=== PATIENT | female | born 2000 | race Caucasian/White ===

== ENCOUNTER 2024-02-24 14:38 | Emergency (ER) | payer OTHER, SELFPAY ==
[2024-02-24 14:50] VITALS: BP 156/88; PULSE 87; RESP 18; TEMP 37.1; O2SAT 100
--- NOTE | 2024-02-24 15:09 | ED.EAR ---
HPI - Ear Problem General Chief complaint: Ear Stated complaint: Left Ear Problem/Sore Throat Source: patient Mode of arrival: ambulatory Limitations: no limitations History of Present Illness HPI Narrative: 23-year-old female presented for complaint of left ear pain and sore throat for 3 days. Pain is described as pressure and cloudy sensation. Pain was worse last night. Endorses throat feels dry with painful swallow. Denies cough, shortness of breath, wheezing, nausea vomiting, fevers or chills. MD Complaint: ear pain Related Data Home Medications Medication Instructions Recorded Confirmed levonorgestrel-ethinyl estradiol 1 tablet PO DAILY 02/24/24 02/24/24 0.1 mg-20 mcg tablet ([facility]) Allergies Allergy/AdvReac Type Severity Reaction Status Date / Time Sulfa (Sulfonamide Allergy Rash Verified 02/24/24 14:51 Antibiotics) Review of Systems Review of Systems: CONSTITUTIONAL: Denies malaise, chills, or fever. EYES: Denies visual changes, redness, or discharge. ENT: Denies rhinorrhea, congestion, sinus pain, Reports ear pain and sore throat. CARDIOVASCULAR: Denies chest pain, palpitations, or edema. RESPIRATORY: Denies cough or dyspnea. GASTROINTESTINAL: Denies abdominal pain, nausea, vomiting, diarrhea SKIN: Denies rash or itching. MUSCULOSKELETAL: Denies myalgia. NEUROLOGIC: Denies headache. All systems reviewed & are unremarkable except as noted in HPI and below [facility] Comments At time of signature, agree with nursing past medical, surgical, social and family history. There is no relevant family history pertinent to the presenting complaint Exam Narrative: GENERAL: Well-appearing, EYES: PERRLA, conjunctivae clear ENT: Nares clear. Mucous membranes moist. right TM pearly mcadams with dull light reflex; left TM erythematous, bulging and intact; canal not erythematous, no drainage no tragal tenderness. Oropharynx not erythematous without lesions. Tonsils not enlarged and without exudate, no drooling, no hoarseness, no trismus, uvula midline. NECK: Supple. No lymphadenopathy CHEST: Clear to auscultation, breath sounds equal. HEART: Regular rate and rhythm. No murmur heard. SKIN: Warm, dry, no rash. NEURO: Alert and oriented x3. PSYCH: Normal mood and affect Course Course Emergency Course: Patient is aware of diagnosis, understands and agrees to treatment plan. Anticipatory guidance given. Patient agrees to follow-up as directed and is aware of reasons to seek care at the emergency department. Portions of this record may have been created with voice recognition software Level of Care: Express Care Visit Vital Signs Vital signs: Vital Signs Temperature 98.7 F 02/24/24 14:50 Pulse Rate 87 02/24/24 14:50 Respiratory Rate 18 02/24/24 14:50 Blood Pressure 156/88 H 02/24/24 14:50 Pulse Oximetry 100 02/24/24 14:50 Oxygen Delivery Room Air 02/24/24 14:50 Temperature 98.7 F 02/24/24 14:50 Pulse Rate 87 02/24/24 14:50 Respiratory Rate 18 02/24/24 14:50 Blood Pressure 156/88 H 02/24/24 14:50 Pulse Oximetry 100 02/24/24 14:50 Oxygen Delivery Room Air 02/24/24 14:50 Reviewed Medical Decision Making MDM Narrative Medical decision making narrative: discussed physical exam findings consistent with left AOM Advised supportive measures and signs/symptoms to go to the ER. Patient is appropriate for outpatient treatment and follow-up. Differential Diagnosis Differential Diagnosis: Coronavirus, strep pharyngitis, allergic rhinitis, upper respiratory tract infection, sinusitis, rhinosinusitis, nasopharyngitis, viral pharyngitis, otitis media, otitis externa, eustachian tube dysfunction, foreign body, cerumen impaction. Vital Signs Vital Signs: Vital Signs Temperature 98.7 F 02/24/24 14:50 Pulse Rate 87 02/24/24 14:50 Respiratory Rate 18 02/24/24 14:50 Blood Pressure 156/88 H 02/24/24 14:50 Pulse Oximetry 100 02/24/24 14:50 Oxygen
== END 2024-02-24 15:20 | disposition home or self-care (01) ==
PROVIDERS: Emergency Provider Nurse Practitioner Family
DX: H66.92 Otitis media, unspecified, left ear (principal)
CPT/HCPCS: 99213; G0463

== ENCOUNTER 2024-05-19 08:46 | Emergency (ER) | payer OTHER, SELFPAY ==
[2024-05-19 08:52] VITALS: BP 155/99; PULSE 94; RESP 18; TEMP 36.7; O2SAT 100
--- NOTE | 2024-05-19 08:59 | ED.FEMALEGU ---
HPI - Female Genitourinary General Chief complaint: Urogenital-Female Stated complaint: Urinary Problem Source: patient and RN notes reviewed Mode of arrival: ambulatory Limitations: no limitations History of Present Illness HPI Narrative: 23 y/o female presents with complaints of urinary burning and frequency x1 day. She denies any concern for STD. She does not know when her LMP was,stating they are irregular but reports compliance with oral bcp. Denies hematuria, nausea, vomiting, abdominal pain, flank pain, constipation, diarrhea, fevers or chills. took azo yesterday afternoon. Related Data Home Medications Medication Instructions Recorded Confirmed levonorgestrel-ethinyl estradiol 1 tablet PO DAILY 02/24/24 02/24/24 0.1 mg-20 mcg tablet ([facility]) Allergies Allergy/AdvReac Type Severity Reaction Status Date / Time Sulfa (Sulfonamide Allergy Rash Verified 02/24/24 14:51 Antibiotics) Review of Systems Review of Systems: CONSTITUTIONAL: Denies body aches, fever, chills, or sweats. CARDIOVASCULAR: Denies chest pain, palpitations, or edema. RESPIRATORY: Denies cough or dyspnea. GASTROINTESTINAL: Reports low abdominal pressure. Denies nausea, vomiting, or diarrhea. GENITOURINARY: Reports dysuria, frequency, and urgency. Denies hematuria, flank pain SKIN: Denies rash, itching, or wounds. MUSCULOSKELETAL: Denies back pain or myalgia. PMF[facility] Comments At time of signature, I have reviewed and agree with nursing past medical, surgical, social and family history unless otherwise noted. Please see nursing chart for further information. There is no relevant family history pertinent to the presenting complaint Exam Narrative: GENERAL: Well-appearing ENT: Mucous membranes pink and moist. CHEST: No respiratory distress. Clear to auscultation. HEART: Regular rate and rhythm. ABDOMEN: Normal active bowel sounds. mild suprapubic tenderness with palpation. No CVA tenderness SKIN: Warm, dry, no rash. NEURO: No focal deficits. Alert and oriented x3. Gait steady. PSYCH: Normal affect. Course Course Emergency Course: Patient is aware of diagnosis, understands and agrees to treatment plan. Anticipatory guidance given. Patient agrees to follow-up as directed and is aware of reasons to seek care at the emergency department. Portions of this record may have been created with voice recognition software Level of Care: Express Care Visit Vital Signs Vital signs: Vital Signs Temperature 98.1 F 08/09/24 08:52 Pulse Rate 94 05/19/24 08:52 Respiratory Rate 18 05/19/24 08:52 Blood Pressure 155/99 H 05/19/24 08:52 Pulse Oximetry 100 05/19/24 08:52 Oxygen Delivery Room Air 05/19/24 08:52 Temperature 98.1 F 05/19/24 08:52 Pulse Rate 94 05/19/24 08:52 Respiratory Rate 18 05/19/24 08:52 Blood Pressure 155/99 H 05/19/24 08:52 Pulse Oximetry 100 05/19/24 08:52 Oxygen Delivery Room Air 05/19/24 08:52 Reviewed MDM - Female Genitourinary MDM Narrative Medical decision making narrative: Discussed physical exam findings and urine results. Antibiotic prescription sent and reviewed with the patient. Advised supportive measures and signs/symptoms to go to the ER. Pt is appropriate for outpt treatment and f/u. Differential Diagnosis Differential diagnosis: Likely urinary tract infection, cystitis and other (STI) Discharge Plan Discharge Clinical Impression: Urinary tract infection Patient Disposition: Home, Self-Care Condition: Stable Instructions: Antibiotic Form, Urinary Tract Infection in Women (ED) Additional Instructions: Take the antibiotic as prescribed The urine will be sent of for a culture to identify what type of bacteria is causing your infection. If the culture shows that the antibiotic will not get rid of your infection, you will be notified and a new antibiotic will be called in for you. Increase water intake you will need to follow u
[2024-05-19 09:06] LABS: EDUAAPPEAR Clear; EDUABILI Negative; EDUABLOOD 2+; EDUACOLOR1 Orange; EDUAGLUCOSE Negative; EDUAKETONE Negative; EDUALEUKO Trace; EDUANITRATE Positive; EDUAPH 6.5; EDUAPROTEIN 2+; EDUASPGRAVITY 1.025
== END 2024-05-19 09:35 | disposition home or self-care (01) ==
PROVIDERS: Emergency Provider Nurse Practitioner Family
DX: N39.0 Urinary tract infection, site not specified (principal)
CPT/HCPCS: 81003; 87077; 87086; 87088; 87186; 99213; G0463

== ENCOUNTER 2025-03-22 16:34 | Emergency (ER) | payer OTHER, SELFPAY ==
--- NOTE | 2025-03-22 16:35 | ED.SKABFB ---
HPI - Skin/Abscess/Foreign Bdy General Chief complaint: Skin/Abscess/Foreign Body Stated complaint: Rash Time Seen by Provider: 03/22/25 16:35 Source: patient Mode of arrival: ambulatory Limitations: no limitations History of Present Illness HPI narrative: Tenisha is a 24 year old female patient presenting to the clinic today with complaints of a rash to her bilateral lower extremities x 5 days. States that she recently went hiking in [place] and developed a rash. States the rash is itching. No pain. No fevers. No known insect bite. States her legs were the only thing that was not covered while hiking Related Data Home Medications ?Medication ?Instructions ?Recorded ?Confirmed ?Last Taken ?Type levonorgestrel-ethinyl estradiol 1 tablet PO DAILY 02/24/24 02/24/24 Unknown History 0.1 mg-20 mcg tablet ([facility]) Allergies Allergy/AdvReac Type Severity Reaction Status Date / Time Sulfa (Sulfonamide Allergy Rash Verified 03/22/25 16:42 Antibiotics) Review of Systems Review of Systems: Pertinent positives per HPI. Patient denies any fever, chills, headache, visual changes, dizziness, cough, runny nose, sore throat, shortness of breath, chest pain, palpitations, nausea, vomiting, diarrhea, constipation, abdominal pain, or any urinary issues. PMFSH Comments At the time of my signature, I reviewed and agree with the nursing past medical, surgical, social, and family history. There is no relevant family history pertinent to the patient complaint. Exam Narrative: General: Well-developed, well nourished, in no apparent distress Head: Normocephalic, atraumatic. Cardio: Regular rate and rhythm, s1 and s2 normal, no murmur appreciated. Resp: Clear to auscultation bilaterally, no rhonchi, rales, wheezing or rubs. Integumentary: [place], warm, and dry, red, raised, itchy rash to bilateral lower extremities Course Course Emergency Course: Portions of this record may have been created with voice recognition software. Level of Care: Express Care Visit Vital Signs Vital signs: Vital signs reviewed MDM - Skin/Abscess/Foreign Bdy MDM Narrative Medical decision making narrative: At the time of visit patient is resting comfortably on the exam table. Patient appears to be nontoxic. Plan: I suspect patient has dermatitis. Prescription for prednisone and triamcinolone cream was sent to the pharmacy. Supportive measures were discussed with the patient and they voiced understanding discharge instructions and agrees to treatment plan. Return precautions reviewed Differential Diagnosis Differential diagnosis: Likely abscess of skin or subcutaneous tissue, viral exanthem, dermatophytosis, urticaria, herpes zoster, allergic reaction to drug, cellulitis, eczema, insect bites, impetigo and contact dermatitis Discharge Plan Discharge Clinical Impression: Dermatitis Patient Disposition: Home Condition: Stable Instructions: Antibiotic Form, Dermatitis (ED) Additional Instructions: Apply triamcinolone cream as directed Take prednisone as directed Avoid hot showers Avoid scratching as this can cause a secondary infection May take benadryl 25-50mg every 6 hours as needed for itching. Follow up with your PCP in 3-5 days if symptoms persist or sooner if they worsen Go to the Emergency Room if symptoms worsen- fever, rash spreading with treatment, shortness of breath, tongue swelling, drooling, or chest pain Patient Language: Indonesian Prescriptions: New prednisone 20 mg tablet 40 mg PO DAILY 5 Days Qty: 10 0RF triamcinolone acetonide 0.1 % cream 1 applic topical BID 7 Days Qty: 30 0RF No Action levonorgestrel-ethinyl estrad [[facility]] 0.1-20 mg-mcg tablet 1 tablet PO DAILY Follow-up/Referrals: UNKNOWN,DOCTOR [Non-Staff] - Time of Disposition: 16:49 Quality NIHSS Nursing Documentation ED NIHSS nursing documentation: reviewed/agree
[2025-03-22 16:36] VITALS: BP 138/68; PULSE 98; RESP 16; TEMP 36.8; O2SAT 100
--- OUTSIDE RECORDS SUMMARY | 2025-03-22 16:36 | XMS_ITS | Referral Summary ---
Author Organization [facility] Virtual Care Address [address] [place] [phone] Phone Care Team Providers Care Oracle Soa Developer Name Role Phone Faye Fernandez MD Primary Care Provider [phone] Allergies Active Allergy Reactions Criticality Noted Date Comments Sulfa (Sulfonamide Antibiotics) Social History Tobacco Use Types Packs/Day Years Used Date Smoking Tobacco: Never Assessed Alcohol Use Standard Drinks/Week Comments No 0 (1 standard drink = 0.6 oz pur e alcohol) Comments Unknown Sex and Gender Information Value Date Recorded Sex Assigned at Not on file 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 Gender Identity Not on file Sexual Orientation Not on file Last Filed Vital Signs Vital Sign Reading Time Taken Comments Blood Pressure 124/111 06/10/2011 9:32 AM CDT Pulse 92 02/24/2010 7:25 AM CDT Temperature - - Respiratory Rate - - Oxygen Saturation 98% 02/22/2010 9:05 PM CDT Inhaled Oxygen Concentration - - Weight 44 kg (97 lb) 07/01/2011 9:33 AM CDT Height 132.5 cm (4' 4.17) 02/22/2010 9:05 PM CD T Body Mass Index - - Plan of Treatment Not on file Insurance [facility] Care Teams Oracle Soa Developer Relationship Specialty Start Date End Date Faye Fernandez MD PCP - General 07/01/11
--- OUTSIDE RECORDS SUMMARY | 2025-03-22 16:37 | XMS_ITS | Clinical Summary ---
Author Organization [facility] Virtual Care Address [address] [place] [phone] Phone Care Team Providers Care Equipment Operator Name Role Phone Faye Fernandez MD Primary Care Provider [phone] Allergies Active Allergy Reactions Criticality Noted Date Comments Sulfa (Sulfonamide Antibiotics) Family History Medical History Relation Name Comments Hypertension Other Family history of Hypertension; Relation Name Status Comments Other Social History Tobacco Use Types Packs/Day Years Used Date Smoking Tobacco: Never Assessed Alcohol Use Standard Drinks/Week Comments No 0 (1 standard drink = 0.6 oz pur e alcohol) Comments Unknown Sex and Gender Information Value Date Recorded Sex Assigned at Not on file 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 Gender Identity Not on file Sexual Orientation Not on file Obstetrics History Last Filed Vital Signs Vital Sign Reading [...] Mass Index - - Plan of Treatment Health Maintenance Due Date Last Done Comments Cervical Cancer Screening 2001 Depression Screening 2001 Hepatitis C Screening 2001 Meningococcal B Vaccine (1 o f 2 - Standard) 2017 Regular Well Visit/Exam 18-64 12/20/2019 Covid-19 Vaccine (2023-2 5 season) 2024 02/10/2021, 01/14/2021 Influenza Vaccine (Season Ended) 2025 08/21/20 14 DTaP/Tdap/Td Vaccine (8 - Td or Tdap) 05/31/2033 05/31/2023, 2012, 05/06/2007, Additional history exists Hepatitis B Screening Completed 06/22/2002 , 03/03/2002, 2001 Pneumococcal vaccine <65 Completed 003, 06/22/2002, 04/24/2002, Additional history exists Varicella Vaccines Completed 05/06/2007, 12/22/2002 HPV Vaccines Completed 01/07/2016, 04/16/2015 Insurance [facility] C[facility] Care Teams Equipment Operator Relationship Specialty Start Date End Date Faye Fernandez MD PCP - General 07/01/11
--- OUTSIDE RECORDS SUMMARY | 2025-03-22 16:37 | XMS_ITS | Clinical Summary ---
Author Organization [facility] Address [address] [place] [address] Phone Care Team Providers Care Drywall Taper Name Role Phone Provider, None Primary Care Provider Unavailabl e Social History Tobacco Use Types Packs/Day Years Used Date Smoking Tobacco: Never Assessed Comments Unknown Sex and Gender Information Value Date Recorded Sex Assigned at Not on file Legal Sex Female 9:56 PM CDT Gender Identity Not on file Sexual Orientation Not on file Plan of Treatment Health Maintenance Due Date Last Done Comments Hepatitis C Virus (HCV) Screening 2001 Meningococcal B Immunization (1 of 2 - Standard) 2017 Pap Smear 2022 Influenza Immunization (#1) 2024 08/21/2014 SARS-COV-2 Immunization ( season) 2024 02/10/2021, 01/14/2021 Respiratory Syncytial Virus (RSV) Immunization (Adult) (1 - 1-dose 75+ series) 2076 Hepatitis B Immunization Completed 002, 03/03/2002, 2001 Pneumococcal Immunization Combined Aged Out 06/25/2003, 06/22/2002, 04/24/2002, Additional history exists No longer eligible based on patient's age to complete this topic DTaP/Tdap/Td Immunization Discontinued 2012, 05/06/2007, 06/25/2003, Additional history exists TdaP Immunization Completed 2012 Human Papillomavirus (HPV) Immunization Completed 01/07/2016, 04/16/2015 Meningococcal Immunization (ACWY) Completed 01/24/2019, 2012 Rotavirus Immunization Aged Out No lo nger eligible based on patient's age to complete this topic Insurance [facility] Care Teams Drywall Taper Relationship Specialty Start Date End Date Provider, None [place] PCP - General 09/15/21
== END 2025-03-22 16:54 | disposition home or self-care (01) ==
PROVIDERS: Emergency Provider Nurse Practitioner Family
DX: L30.9 Dermatitis, unspecified (principal)
CPT/HCPCS: 99213; G0463